=== PATIENT | female | born 1975 | race Caucasian/White ===

== ENCOUNTER 2020-11-25 13:41 | Emergency (ER) | payer OTHER ==
[2020-11-25 13:52] VITALS: BMI 26.6
[2020-11-25 15:51] LABS: BASO % 0.5 % (0-2.0); EOS % 1.5 % (0-4.5); HEMATOCRIT 35.8 % (32.4-45.2); HEMOGLOBIN 11.9 GM/dL (10.7-15.3); LYMPH % 26.6 % (8-40); MCH 29.3 pg (25.7-33.7); MCHC 33.1 g/dl (32.0-36.0); MEAN CELL VOLUME 88.5 fl (80-96); MEAN PLT VOLUME 10.1 fl (7.5-11.1); MONO % 6.2 % (3.8-10.2); NEUT % 65.2 % (42.8-82.8); PLATELET COUNT 266 K/MM3 (134-434); RBC 4.05 M/mm3 (3.60-5.2); RDW 14.8 % (11.6-15.6); WHITE BLOOD COUNT 7.1 K/mm3 (4.0-10.0)
[2020-11-25] MEDS ORDERED: ACETAMINOPHEN 1000 MG/100 ML VIAL (NON FORMULARY) IVPB ONE (15:58)
[2020-11-25] MEDS ORDERED: LACTATED RINGERS SOLUTION 1000 ML INFUS.BAG IV ONE (15:58)
[2020-11-25 16:01] LABS: INR 0.99 (0.83-1.09); PROTHROMBIN TIME (PATIENT) 12.2 SEC (9.7-13.0)
[2020-11-25 16:04] LABS: ACTIVATED PTT 31.6 SECONDS (25.2-36.5)
[2020-11-25 16:08] LABS: CHLORIDE 108 mmol/L (98-107); POTASSIUM 4.3 mmol/L (3.5-5.1); SODIUM 139 mmol/L (136-145)
[2020-11-25 16:10] LABS: GLUCOSE,RANDOM 108 mg/dL (74-106)
[2020-11-25] MEDS ORDERED: ACETAMINOPHEN INJECTION 100 ML IVPB ONE (16:10)
[2020-11-25 16:11] LABS: ALBUMIN 3.9 g/dl (3.4-5.0); CALCIUM 8.8 mg/dL (8.5-10.1)
[2020-11-25 16:13] LABS: ANION GAP 4 MMOL/L (8-16); CO2 28 mmol/L (21-32)
[2020-11-25 16:14] LABS: LIPASE 147 U/L (73-393)
[2020-11-25 16:15] LABS: CREATININE 0.9 mg/dL (0.55-1.3); SGOT/AST 21 U/L (15-37); SGPT/ALT 33 U/L (13-61)
[2020-11-25 16:17] LABS: BILIRUBIN,TOTAL 0.3 mg/dL (0.2-1); TOT PROT 7.2 g/dl (6.4-8.2)
[2020-11-25 16:18] LABS: ALK PHOS 101 U/L (45-117)
[2020-11-25 16:46] LABS: URINE APPEARANCE CLEAR; URINE BILIRUBIN NEGATIVE (NEGATIVE); URINE COLOR YELLOW; URINE GLUCOSE (UA) NEGATIVE (NEGATIVE); URINE KETONE NEGATIVE (NEGATIVE); URINE LEUK ESTERASE NEGATIVE (NEGATIVE); URINE NITRITE NEGATIVE (NEGATIVE); URINE PROTEIN NEGATIVE (NEGATIVE); URINE UROBILINOGEN 0.2 mg/dL (0.2-1.0)
[2020-11-25] MEDS ORDERED: MAG HYDROX/AL HYDROX/SIMETH 30 ML UNIT-DOSE CUP PO ONE (17:59)
[2020-11-25] MEDS ORDERED: FAMOTIDINE 20 MG/50 ML IVPB 20 MG/50 ML MG IVPB ONE ×2 (17:59→18:27)
[2020-11-25] MEDS ORDERED: MAG HYDROX/AL HYDROX/SIMETH 30 ML UNIT-DOSE CUP ONE (18:26)
[2020-11-25 20:42] VITALS: BP 132/87; PULSE 87; TEMP 98.2
== END 2020-11-25 21:05 | disposition home or self-care (01) ==
LOC: JER 13:41
PROC: 3E0333Z Introduction of Anti-inflammatory into Peripheral Vein, Percutaneous Approach (ICD-10-PCS; principal; 2020-11-25)
PROC: 3E033GC Introduction of Other Therapeutic Substance into Peripheral Vein, Percutaneous Approach (ICD-10-PCS; 2020-11-25)
DX: R10.9 Unspecified abdominal pain (principal); N83.201 Unspecified ovarian cyst, right side
CPT/HCPCS: 36415; 74177-TC; 76830-TC; 80053; 81003; 82550; 83690; 84484; 84702; 84703; 85025; 85610; 85730; 86780; 86850; 86900; 86901; 87086; 87491; 87591; 93005; 93010; 99284-25; J0131; Q9967

== ENCOUNTER 2021-10-15 12:29 | Emergency (ER) | payer OTHER ==
[2021-10-15 12:49] VITALS: BP 111/46; PULSE 64; TEMP 98.1; BMI 32.6
[2021-10-16 13:07] LABS: SARS-CoV-2 NAA Not Detected (Not Detected)
== END 2021-10-15 14:51 | disposition home or self-care (01) ==
LOC: JER 12:29
DX: J02.9 Acute pharyngitis, unspecified (principal)
CPT/HCPCS: 87651; 99283-25; C9803; U0003; U0005

== ENCOUNTER 2023-01-16 08:29 | Emergency (ER) | payer OTHER ==
[2023-01-16] MEDS ORDERED: PHENAZOPYRIDINE HCL 100 MG TABLET (FP) PO ONE (09:55)
[2023-01-16] MEDS ORDERED: PHENAZOPYRIDINE HCL 100 MG TABLET (FP) ONE (10:01)
[2023-01-16 11:21] LABS: EPI CELLS >36 /uL (0-25.1); HYALINE CASTS 1 /uL (0-3.1); URINE APPEARANCE CLEAR; URINE BACTERIA 240 /uL (0-1359); URINE BILIRUBIN NEGATIVE (NEGATIVE); URINE COLOR YELLOW; URINE GLUCOSE (UA) NEGATIVE (NEGATIVE); URINE KETONE NEGATIVE (NEGATIVE); URINE LEUK ESTERASE 3+ (NEGATIVE); URINE NITRITE NEGATIVE (NEGATIVE); URINE PROTEIN NEGATIVE (NEGATIVE); URINE RBC 6 /uL (0-23.9); URINE UROBILINOGEN 0.2 mg/dL (0.2-1.0); URINE WBC 30 /uL (0-25.8)
[2023-01-16 11:22] LABS: HCG,QUALITATIVE URINE Negative
[2023-01-16 11:50] VITALS: BP 125/73; PULSE 60; RESP 18; TEMP 98
== END 2023-01-16 11:50 | disposition home or self-care (01) ==
LOC: JER 08:29
DX: N30.00 Acute cystitis without hematuria (principal); R30.9 Painful micturition, unspecified; R35.0 Frequency of micturition; R39.15 Urgency of urination
CPT/HCPCS: 81003; 84703; 87086; 99283-25